=== PATIENT | male | born 1995 | race Caucasian/White ===

== ENCOUNTER 2019-07-17 12:45 | Emergency (ER) | payer SELFPAY ==
[~2019-07-17] VITALS: Ht 175.3 cm; Wt 79.0 kg
[2019-07-17 12:47] VITALS: BP 142/82
[2019-07-17] MEDS ORDERED: TETanus/Pertussis (Acell)/Diphther VAC/PF (Tdap-Adult) 0.5ml syringe IMVAC ONE (13:20)
[2019-07-17] MEDS ORDERED: LIDOcaine 1% W/epiNEPHrine 1:200,000 10ml vial IJ ONE (13:20)
[2019-07-17] MEDS ORDERED: gentamicin in saline, iso-osm 80 MG/50 ML premix IV ONE (14:10)
[2019-07-17] MEDS ORDERED: ibuprofen tablet 400 MG TABLET PO ONE (14:10)
--- NOTE | 2019-07-17 14:15 | NUR ---
DR. RICCI CONTACTED FOR [facility]
[2019-07-17] MEDS ORDERED: gentamicin inj 80 MG in normal saline 100ml IV soln 98 ML IV ONE (14:25)
[2019-07-17] MEDS ORDERED: CEPH250T PO (14:25)
[2019-07-17] MEDS ORDERED: IBUP-1984 PO (14:25)
[2019-07-17] MEDS ORDERED: ceFAZolin 2gm in dextrose, iso 50 ML IV ONE (16:00)
== END 2019-07-17 16:36 | disposition home or self-care (01) ==
LOC: ER 12:46
DX: S96.122A Laceration of muscle and tendon of long extensor muscle of toe at ankle and foot level, left foot, initial encounter (principal); S91.112A Laceration without foreign body of left great toe without damage to nail, initial encounter; Z79.899 Other long term (current) drug therapy; W27.8XXA Contact with other nonpowered hand tool, initial encounter; Y93.89 Activity, other specified; Y92.89 Other specified places as the place of occurrence of the external cause; Y99.8 Other external cause status
CPT/HCPCS: 12002; 73660; 90471; 90715; 96365; 96366; 96368; 99284; J1580

== ENCOUNTER 2020-07-14 02:08 | Emergency (ER) | payer MEDICAID ==
[~2020-07-14] VITALS: Ht 175.3 cm; Wt 77.3 kg
[2020-07-14 02:14] VITALS: BP 140/89
--- NOTE | 2020-07-14 02:53 | NUR ---
I had spoken to the family soon after the patient got back into a bed. The mother really wanted to come back to be with her son. The patient is AOx4 and relaxed in bed. Informed mother that there is a no visitor policy at this time, but that he appears to be doing fine, and we would keep the family/her abreast of the situation.
--- NOTE | 2020-07-14 02:59 | NUR ---
Apparently he had refused his CT. I went in and spoke to him, he said he would. Then the tech went into get him again and he is concerned about the cost. That he doesn't have insurance. Informed him that his mom really wants him to have a CT. Cathy went to check on his insurance, he has active insurance. So she is going to go and talk to the patient.
[2020-07-14] MEDS ORDERED: LIDOcaine 1% W/epiNEPHrine 1:200,000 10ml vial ONE (09:00)
== END 2020-07-14 03:30 | disposition home or self-care (01) ==
LOC: ER 02:09
DX: S01.112A Laceration without foreign body of left eyelid and periocular area, initial encounter (principal); Z72.89 Other problems related to lifestyle; X58.XXXA Exposure to other specified factors, initial encounter; Y93.89 Activity, other specified; Y92.89 Other specified places as the place of occurrence of the external cause; Y99.8 Other external cause status
CPT/HCPCS: 12013; 99284

== ENCOUNTER 2024-04-05 17:54 | Emergency (ER) | payer OTHER, MEDICAID ==
[~2024-04-05] VITALS: Ht 175.3 cm; Wt 80.1 kg
[2024-04-05] MEDS: LIDOcaine/epinephrine/tetracaine TOPICAL sol 3 ML syringe TOP ONE (18:51)
[2024-04-05] MEDS: LIDOcaine 1% W/epiNEPHrine 1:100,000 20ml vial SQ ONE (18:53)
[2024-04-05] MEDS ORDERED: AMOX-117 PO (19:50)
[2024-04-05 19:58] VITALS: BP 140/75; PULSE 75; RESP 16; TEMP 98.3; O2SAT 98
== END 2024-04-05 20:00 | disposition home or self-care (01) ==
LOC: ER 17:54
DX: S01.81XA Laceration without foreign body of other part of head, initial encounter (principal); S01.511A Laceration without foreign body of lip, initial encounter; Z72.89 Other problems related to lifestyle; V89.2XXA Person injured in unspecified motor-vehicle accident, traffic, initial encounter; Y93.89 Activity, other specified; Y92.89 Other specified places as the place of occurrence of the external cause; Y99.8 Other external cause status
CPT/HCPCS: 12011; 40650; 99284; J3490; J7030; 12013; 99283; A6449